=== PATIENT | male | born 1970 | race Two or more races ===

== ENCOUNTER 2018-08-21 17:17 | Emergency (ER) | payer SELFPAY ==
[~2018-08-21] VITALS: Ht 172.7 cm; Wt 80.0 kg
[2018-08-22] MEDS ORDERED: TRAMADOL 50MG TABLET PO SCH (00:45)
[2018-08-22] MEDS ORDERED: IBUPROFEN 600MG TABLET PO SCH (00:45)
[2018-08-22 03:11] VITALS: BP 148/99
== END 2018-08-22 03:12 | disposition home or self-care (01) ==
LOC: ER 17:17
DX: M54.30 Sciatica, unspecified side (principal); S33.5XXA Sprain of ligaments of lumbar spine, initial encounter; S16.1XXA Strain of muscle, fascia and tendon at neck level, initial encounter; V89.2XXA Person injured in unspecified motor-vehicle accident, traffic, initial encounter; Y93.89 Activity, other specified; Y92.410 Unspecified street and highway as the place of occurrence of the external cause
CPT/HCPCS: 72040; 72100; 99283